=== PATIENT | female | born 1990 ===

== ENCOUNTER 2022-01-28 17:06 | Emergency (ER) | payer MEDICAID ==
[2022-01-28 17:13] VITALS: BP 137/83
== END 2022-01-28 18:45 | disposition left against medical advice (07) ==
LOC: ED 17:06
DX: K08.89 Other specified disorders of teeth and supporting structures (principal); Z53.21 Procedure and treatment not carried out due to patient leaving prior to being seen by health care provider

== ENCOUNTER 2022-02-07 10:25 | Emergency (ER) | payer MEDICAID ==
[2022-02-07] MEDS ORDERED: IBUPROFEN 800 MG TAB PO ONE (11:20)
[2022-02-07] MEDS ORDERED: PENICILLIN G BENZATHINE 1.2 MILLION UNIT/2 ML INJ IM ONE (11:20)
[2022-02-07 11:22] VITALS: BP 119/63
--- NOTE | 2022-02-07 11:22 | Emergency Department Report ---
ED ENT HPI - General Stated complaint: TOOTHACHE Time Seen by Provider: 02/07/22 11:19 Source: patient Mode of arrival: Ambulatory Limitations: No Limitations - History of Present Illness Initial comments: Patient is a 31-year-old female that comes to the ER with left lower dental pain. She did not see the dentist. She came to the ER on 01-28 but left because the wait was too long. She has no abscess, trismus or Ludewig's. She is controlling secretions. ABCs intact MD complaint: tooth pain -: Gradual, week(s) Severity: moderate Quality: aching Consistency: constant Improves with: none Worsens with: none Context- Dental: history of dental caries Associated Symptoms: toothache - Related Data Previous Rx's Medication Instructions Recorded Last Taken Type Amoxicillin [Trimox CAP] 500 mg PO BID #20 capsule 02/07/22 Unknown Rx Allergies Allergy/AdvReac Type Severity Reaction Status Date / Time No Known Allergies Allergy Unverified 01/28/22 17:11 ED Dental HPI - General Stated complaint: TOOTHACHE Time Seen by Provider: 02/07/22 11:19 - Related Data Previous Rx's Medication Instructions Recorded Last Taken Type Amoxicillin [Trimox CAP] 500 mg PO BID #20 capsule 02/07/22 Unknown Rx Allergies Allergy/AdvReac Type Severity Reaction Status Date / Time No Known Allergies Allergy Unverified 01/28/22 17:11 ED Review of Systems ROS: Stated complaint: TOOTHACHE Other details as noted in HPI Comment: All other systems reviewed and negative ED Past Medical Hx - Medications Home Medications: Home Medications Medication Instructions Recorded Confirmed Last Taken Type Amoxicillin [Trimox CAP] 500 mg PO BID #20 capsule 02/07/22 Unknown Rx ED Physical Exam - General General appearance: alert, in no apparent distress - Head Head exam: Present: atraumatic, normocephalic - Eye Eye exam: Present: normal appearance - ENT ENT exam: Present: mucous membranes moist - Expanded ENT Exam Expanded Mouth exam: Absent: drooling, trismus, muffled voice Teeth exam: Present: dental caries 1 - Other (Cariesdecay) - Neck Neck exam: Present: normal inspection - Respiratory Respiratory exam: Present: normal lung sounds bilaterally. Absent: respiratory distress - Cardiovascular Cardiovascular Exam: Present: regular rate, normal rhythm. Absent: systolic murmur, diastolic murmur, rubs, gallop - GI/Abdominal GI/Abdominal exam: Present: soft, normal bowel sounds - Extremities Exam Extremities exam: Present: normal inspection - Back Exam Back exam: Present: normal inspection - Neurological Exam Neurological exam: Present: alert, oriented X3 - Psychiatric Psychiatric exam: Present: normal affect, normal mood - Skin Skin exam: Present: warm, dry, intact, normal color. Absent: rash ED Course Vital Signs 02/07/22 11:15 Temperature 98.2 F Pulse Rate 76 Respiratory 20 Rate Blood Pressure 119/63 Blood Pressure 119/63 [Right] O2 Sat by Pulse 100 Oximetry ED Medical Decision Making - Medical Decision Making Vital Signs 02/07/22 11:15 Temperature 98.2 F Pulse Rate 76 Respiratory 20 Rate Blood Pressure 119/63 Blood Pressure 119/63 [Right] O2 Sat by Pulse 100 Oximetry Patient has been given Bicillin IM in the ER. She has been medicated with pain with Motrin 800 mg. Patient being discharged home with discharge plan of care including medications, diet, activity and follow-up. She understands she needs to see a dentist and that what we are doing will only temporize the situation. On discharge ABCs are intact patient taking p.o. and she is in no acute distress. - Differential Diagnosis Dental pain Critical care attestation.: If time is entered above; I have spent that time in minutes in the direct care of this critically ill patient, excluding procedure time. ED Disposition Clinical Impression: Pain, dental Disposition: 01 HOME / SELF CARE / HOMELESS Is pt being admited?: No Does the pt Need Aspirin: No Condition: Stable Instructions: Acute Pain, Adult Additional Instructions: meds as ordered today over the counter motrin and tylenol for pain follow up with dentist patti what we are doing is only going to give you temporary relief referral below stay well hydrated with water Prescriptions: Amoxicillin [Trimox CAP] 500 mg PO BID #20 capsule Referrals: [facility] [Outside] - 3-5 Days [facility] [Outside] - 3-5 Days Time of Disposition: 11:20
== END 2022-02-07 12:02 | disposition home or self-care (01) ==
LOC: ED 10:25
DX: K08.89 Other specified disorders of teeth and supporting structures (principal)
CPT/HCPCS: 99282; J0561